=== PATIENT | male | born 1945 | race Caucasian/White ===

== ENCOUNTER 2019-05-19 08:30 | Inpatient (IN) | payer BC, MEDICARE ==
--- NOTE | 2019-08-11 09:20 | HP ---
HISTORY OF PRESENT ILLNESS: The patient is a 73-year-old male with a long history of progressive problems with the right knee. He has had previous arthroscopic surgery of both knees and open meniscectomy in the left. He has problems with both knees, but his right knee is bothering the most, and he has had progressive problems despite rest, restriction of activities, cortisone injection, anti-inflammatory medications, and lifestyle adjustments. The pain is now interfering with day-to-day activities including walking, getting dressed, and sleeping. PAST MEDICAL HISTORY: The patient is otherwise in good health. He has had a previous cardiac stent and has a history of asthma and COPD. He was followed by Dr. Massey and Dr. Rendon and has had clearance from both of them. He also has history of hypertension, prediabetes, and hypercholesterolemia. CURRENT MEDICATIONS: Include: 1. Metformin. 2. Breo Ellipta. 3. Simvastatin. 4. Low-dose aspirin. 5. Benicar. 6. Dymista. 7. Singulair. 8. ProAir. 9. He uses a CPAP machine at home. ALLERGIES: HE IS ALLERGIC TO IODINE, IV CONTRAST. FAMILY HISTORY: Otherwise unremarkable. SOCIAL HISTORY: Otherwise unremarkable. REVIEW OF SYSTEMS: Otherwise unremarkable. PHYSICAL EXAMINATION: GENERAL: Reveals a healthy male. HEENT: Unremarkable. NECK: Supple. CHEST: Clear. HEART: Regular rate and rhythm. ABDOMEN: Soft, nontender. RECTAL: Deferred. GENITAL: Deferred. EXTREMITIES: Pertinent findings of the right knee, there is no effusion. There is mild valgus deformity. There is tenderness and crepitus over the lateral joint line. There are healed arthroscopy puncture sites. Range of motion is 5 to 110 degrees. There is no instability. Neurovascular exam is intact. There is no pain with range of motion of the right hip. DIAGNOSTIC STUDIES: X-rays of the right knee reveal severe tricompartmental degenerative arthritis and narrowing laterally. There is [id number] collapse medially in the left knee. IMPRESSION: 1. Posttraumatic degenerative arthritis of both knees, right greater than left. 2. History of asthma. 3. History of hypercholesterolemia. 4. History of hypertension. 5. History of prediabetes. PLAN: Right total knee replacement. He may eventually require left total knee replacement. The nature of the surgery, length of recovery, and potential complications such as infection, loss of motion, incomplete relief, delayed wound healing, neurovascular injury, thromboembolic phenomena, possible transfusion, and need for revision have been discussed in detail. Job ID: [id number]
[2019-08-15] MEDS ORDERED: Tranexamic Acid 1,000 MG/10 ML VIAL ONE ×2 (07:24→11:32)
[2019-08-15] MEDS ORDERED: Vancomycin 1.5 GRAM/300 ML BAG 1.5 GM/300 ML BAG ONE (07:24)
[2019-08-15] MEDS ORDERED: Sodium Chloride 0.9% 100 ML ONE (07:24)
[2019-08-15] MEDS ORDERED: Midazolam HCl 2 mg/2 ml Vial ONE (07:59)
[2019-08-15] MEDS ORDERED: Fentanyl 100 MCG/2 ML VIAL ONE ×3 (08:00→11:39)
[2019-08-15] MEDS ORDERED: EPINEPHrine 1 MG/ML AMP ONE (08:13)
[2019-08-15] MEDS ORDERED: Promethazine HCl 25 MG/ML VIAL IM PRN (09:36)
[2019-08-15] MEDS ORDERED: Ropivacaine HCl/PF 250 ML in Premix Bag 1 BAG NERVE BLCK SCH (09:36)
[2019-08-15] MEDS ORDERED: Ondansetron PF 4 MG/2 ML Vial IVP PRN ×2 (09:36→12:37)
[2019-08-15] MEDS ORDERED: Zolpidem Tartrate 5 MG TAB PO PRN ×2 (09:36→12:37)
[2019-08-15] MEDS ORDERED: HYDROcodone/Acetaminophen 10/325 mg Tablet PO PRN ×3 (09:36→12:37)
[2019-08-15] MEDS ORDERED: Fentanyl 100 MCG/2 ML VIAL IV PRN (09:36)
[2019-08-15] MEDS ORDERED: traMADol HCl 50 MG TAB PO PRN ×3 (09:36→12:37)
[2019-08-15] MEDS ORDERED: Acetaminophen 325 MG TAB PO PRN ×2 (09:36→12:37)
[2019-08-15] MEDS ORDERED: Lidocaine 1% w/Epinephrine 1:100K 20 ML VIAL ONE (09:45)
[2019-08-15] MEDS ORDERED: Bupivacaine 0.25% HCL 30 ML VIAL ONE (09:45)
[2019-08-15] MEDS ORDERED: Tranexamic Acid 1,000 MG in Sodium Chloride 0.9% 100 ML IVPB SCH ×2 (11:30→12:37)
[2019-08-15] MEDS ORDERED: Ketorolac Tromethamine 30 MG/ML VIAL IVP SCH (12:00)
[2019-08-15] MEDS ORDERED: Ropivacaine 0.2% HCl/PF (40 MG/20 ML VIAL) ONE (12:03)
[2019-08-15] MEDS ORDERED: Glycopyrrolate 0.2 MG/ML 5 ML SYRINGE ONE (12:03)
[2019-08-15] MEDS ORDERED: PROPOFOL 200 MG/20 ML VIAL ONE (12:03)
[2019-08-15] MEDS ORDERED: EPHEDRINE 25 MG/5 ML SYRINGE ONE (12:03)
[2019-08-15] MEDS ORDERED: Bupivacaine HCl 0.5%/Epinephrine 1:200,000/PF 30 ml Vial ONE (12:03)
[2019-08-15] MEDS ORDERED: Lidocaine 1% PF 5 ML VIAL ONE (12:03)
[2019-08-15] MEDS ORDERED: Ondansetron PF 4 MG/2 ML Vial ONE (12:03)
[2019-08-15] MEDS ORDERED: Dexamethasone 20 MG/5 ML VIAL ONE (12:03)
[2019-08-15] MEDS ORDERED: diphenhydrAMINE 25 MG CAP PO PRN (12:37)
[2019-08-15] MEDS ORDERED: Fentanyl 100 MCG/2 ML VIAL SLOW IVP PRN ×2 (12:37)
[2019-08-15] MEDS ORDERED: Promethazine HCl 25 MG/ML VIAL SLOW IVP PRN (12:37)
[2019-08-15] MEDS ORDERED: Aspirin 81 mg Enteric Coated Tablet PO SCH (13:00)
--- NOTE | 2019-08-15 13:00 | RAD ---
RIGHT KNEE RADIOGRAPH 2 VIEWS: INDICATION: Postop right knee. COMPARISON: None. FINDINGS: There is a right total knee prosthesis that projects in the expected position. There is intraarticul ar and scattered periarticular soft tissue gas. IMPRESSION: Right total knee prosthesis. POS: BH
[2019-08-15] MEDS ORDERED: Fluticasone Propionate Nasal Spray 16 gm Bottle NASAL SCH (13:15)
[2019-08-15] MEDS ORDERED: Azelastine 137 MCG/Spray 30 ML NS SCH (13:15)
[2019-08-15 13:20] VITALS: BMI 27.2
[2019-08-15] MEDS ORDERED: Senokot S 8.6-50 MG TAB PO SCH (13:45)
[2019-08-15] MEDS ORDERED: metFORMIN 500 MG TAB PO SCH (13:45)
[2019-08-15] MEDS ORDERED: Ubidecarenone 50 MG CAP PO SCH (13:45)
[2019-08-15] MEDS ORDERED: Losartan 25 MG TAB PO SCH (13:45)
[2019-08-15] MEDS ORDERED: Multivitamin W/ Minerals 1 TAB PO SCH (13:45)
[2019-08-15] MEDS: Azelastine 137 MCG/Spray 30 ML NS SCH (14:07)
--- NOTE | 2019-08-15 14:30 | OP ---
DATE OF PROCEDURE: 08/15/2019 STAIN SPRAYER: Leah Swartz PA-C ANESTHESIA: General plus adductor canal and sciatic nerve blocks. PREOPERATIVE DIAGNOSIS: Degenerative arthritis, right knee. POSTOPERATIVE DIAGNOSIS: Degenerative arthritis, right knee. PROCEDURE PERFORMED: Right total knee replacement with computer-assisted navigation with cemented [place] [employer] components (#6 femoral component, #7 primary tibial baseplate with 16 mm CS plastic insert, and A35 all-plastic patella component). DESCRIPTION OF PROCEDURE: After satisfactory anesthesia was induced in supine position, sequential compression device was placed on the nonoperative leg throughout the procedure. The right leg was then prepped and draped in routine manner, elevated, exsanguinated with Esmarch bandage, and the tourniquet was inflated to 250 mmHg. A gently-curved medial parapatellar incision was made, carried down to the subcutaneous tissues, and bleeding points were controlled with Bovie cautery. Medial parapatellar arthrotomy was performed. Patella was dislocated laterally and portions of the fat pad were excised for exposure. There was marked tricompartmental degenerative arthritis of the knee with large areas of exposed bone both medially and laterally. Osteophytes and meniscal remnants were removed. Using the mana.bo pinless navigation system and the appropriate guides, the distal femoral and proximal tibial articular surfaces were excised to accept the trial components. Portions of the IT band and popliteus tendon were released to correct the valgus deformity. It was felt that a #6 femoral component and #7 primary tibial baseplate with 16 mm CS plastic insert gave appropriate size, fit, and stability. The patellar articular surface was excised to accept all-plastic A35 patella component. There was good range of motion and good patellar tracking. The trial components were removed. The knee was copiously irrigated with the pulsatile lavage. The bony surfaces were thoroughly cleaned and dried. The permanent components were then cemented in a single stage using one package of cement premixed with 1 g of tobramycin powder. Excess cement was removed. There was again good fit and stability of the components. The knee was again copiously irrigated. The medial retinaculum and quadriceps mechanism were closed with interrupted #2 Vicryl and a running #2 Quill. The skin was infiltrated with a mixture of 30 mL of 0.25% plain Marcaine and 20 mL of 1% lidocaine with epinephrine. Subcutaneous tissues were closed with a running 0 Quill suture and the skin was closed with running subcuticular 3-0 Monoderm and Surgiseal skin adhesive. A sterile bulky compressive dressing was applied. The tourniquet was deflated after 92 minutes. The foot promptly pinked up. Sequential compression device was applied to the operated leg. He was awakened and taken to recovery room in stable condition. There were no apparent intraoperative complications. The estimated blood loss was less than 100 mL. Job ID: [id number]
[2019-08-15] MEDS: CEFAZOLIN 2 GM in Premix Bag 1 BAG IVPB SCH ×2 (15:00→23:29)
[2019-08-15] MEDS: Sodium Chloride 0.9% 1,000 ML IV SCH ×2 (15:00→23:29)
--- NOTE | 2019-08-15 15:20 | PDOC.HOSPP ---
- Subjective Encounter Date: 08/15/19 Encounter Time: 12:45 Subjective: no sob or chest pain right LE is still numb at bedside - Objective Vital Signs & Weight: Vital Signs (12 hours) Temp Pulse Resp BP Pulse Ox 08/15/19 12:45 96.8 F L 48 L 18 136/66 97 Weight Weight 212 lb Additional Labs: Accuchecks 08/15/19 08:07 POC Glucose 96 Hospitalist ROS - Medication Medications: Active Medications Generic Name Dose Route Start Last Admin Trade Name Freq PRN Reason Stop Dose Admin Azelastine HCl 0 ml 08/15/19 09:00 08/15/19 14:07 Azelastine NS Not Given DAILY NENITA Coenzyme Q10 200 mg 08/15/19 13:45 08/15/19 14:58 Coenzyme Q10 PO 08/15/19 15:45 200 mg NOW NENITA Administration Cefazolin Sodium/Dextrose 2 gm 50 mls @ 100 mls/hr 08/15/19 15:00 08/15/19 15 :00 / Device IVPB 08/15/19 23:29 50 mls Q8H NENITA Administration Sodium Chloride 1,000 mls @ 100 mls/hr 08/15/19 12:37 08/15/19 15:00 Normal Saline 0.9% IV Not Given .Q10H NENITA Iron/Minerals/Multivitamins 1 tab 08/15/19 13:45 08/15/19 14:58 Theragran M PO 08/15/19 15:45 1 tab NOW NENITA Administration Losartan Potassium 50 mg 08/15/19 13:45 08/15/19 14:58 Cozaar PO 08/15/19 15:45 50 mg NOW NENITA Administration Metformin HCl 500 mg 08/15/19 13:45 08/15/19 14:58 Glucophage PO 08/15/19 15:45 500 mg NOW NENITA Administration Senna/Docusate Sodium 2 tab 08/15/19 13:45 08/15/19 14:10 Senokot S PO 08/15/19 15:45 Not Given NOW NENITA - Exam General Appearance: awake alert Eye: PERRL, anicteric sclera ENT: no oropharyngeal lesions, dry oral mucosa Neck: supple, no JVD Heart: RRR, no murmur, no gallops Respiratory: no wheezes, no rales, no ronchi Gastrointestinal: soft, non-tender, non-distended, normal bowel sounds Extremities: no cyanosis, no edema Neurological: cranial nerve grossly intact, no focal deficits Psychiatric: normal affect, A&O x 3 Hosp A/P (1) Status post total knee replacement, right Code(s): Z96.651 - PRESENCE OF RIGHT ARTIFICIAL KNEE JOINT Status: Acute (2) HTN (hypertension) Code(s): I10 - ESSENTIAL (PRIMARY) HYPERTENSION Status: Chronic Qualifiers: Hypertension type: essential hypertension Qualified Code(s): I10 - Essential (primary) hypertension (3) CAD (coronary artery disease) Code(s): I25.10 - ATHSCL HEART DISEASE OF [place] CORONARY ARTERY W/O ANG PCTRS Status: Chronic Qualifiers: Coronary Disease-Associated Artery/Lesion type: [place] artery [place] vs. transplanted heart: [place] heart Associated angina: without angina Qualified Code(s): I25.10 - Atherosclerotic heart disease of [place] coronary artery without angina pectoris (4) Dyslipidemia Code(s): E78.5 - HYPERLIPIDEMIA, UNSPECIFIED Status: Chronic (5) DM type 2 (diabetes mellitus, type 2) Status: Chronic Qualifiers: Diabetes mellitus usp insulin use: without usp use Diabetes mellitus complication status: without complication Qualified Code(s): E11.9 - Type 2 diabetes mellitus without complications - Plan continue asp bid, metformin daily, cozaar, lipitor and singulair prior h/o cad with stent, f/u with No pcp (previous pcp's x2 retired) on fentanyl, norco prn for pain hemostable will f/u
[2019-08-15] MEDS: Ketorolac Tromethamine 30 MG/ML VIAL IVP SCH ×2 (17:58→23:28)
[2019-08-15] MEDS: Mometasone 200 MCG/Formoterol 5 MCG 120 PUFF INHALER INH SCH (18:02)
[2019-08-15] MEDS ORDERED: Vancomycin HCl 1.5 GM in Sodium Chloride 0.9% 250 ML 300 ML IVPB SCH (20:00)
[2019-08-15] MEDS ORDERED: Vancomycin 1.5 GRAM/300 ML BAG 1.5 GM in Premix Bag 1 BAG IVPB SCH (20:00)
[2019-08-15] MEDS: Aspirin 81 mg Enteric Coated Tablet PO SCH (20:06)
[2019-08-15] MEDS: Magnesium Oxide 250 MG TAB PO SCH (20:06)
[2019-08-15] MEDS: Senokot S 8.6-50 MG TAB PO SCH (20:07)
[2019-08-15] MEDS: Atorvastatin Calcium 20 MG TAB PO SCH (20:07)
[2019-08-15] MEDS: Montelukast Sodium 10 mg Tablet PO SCH (20:07)
[2019-08-16] MEDS: HYDROcodone/Acetaminophen 10/325 mg Tablet PO PRN ×2 (03:21→19:58)
[2019-08-16 05:26] LABS: Hemoglobin 12.3 g/dL (14.0-18.0); Mean Corpuscular HGB CONC 31.9 g/dL (32.0-36.0); Mean Corpuscular Hemoglobin 31.9 pg (27.0-31.0); Mean Corpuscular Volume 99.9 fL (78.0-98.0); Mean Platelet Volume 8.5 fL (7.4-10.4); Platelet Count 146 thou/uL (130-400); RBC Distribution Width 12.1 % (11.5-14.5); Red Blood Cell (RBC) Count 3.87 mill/uL (4.70-6.10); White Blood Cell (WBC) Count 12.2 thou/uL (4.8-10.8)
[2019-08-16] MEDS: Ketorolac Tromethamine 30 MG/ML VIAL IVP SCH ×4 (06:05→23:43)
[2019-08-16] MEDS: Mometasone 200 MCG/Formoterol 5 MCG 120 PUFF INHALER INH SCH ×2 (07:34→18:08)
[2019-08-16] MEDS: Sodium Chloride 0.9% 1,000 ML IV SCH ×2 (07:59→19:58)
[2019-08-16] MEDS: Losartan 25 MG TAB PO SCH (08:02)
[2019-08-16] MEDS: metFORMIN 500 MG TAB PO SCH (08:03)
[2019-08-16] MEDS: Ubidecarenone 50 MG CAP PO SCH (08:03)
[2019-08-16] MEDS: Multivitamin W/ Minerals 1 TAB PO SCH (08:03)
[2019-08-16] MEDS: Aspirin 81 mg Enteric Coated Tablet PO SCH ×2 (08:03→19:57)
[2019-08-16] MEDS: Senokot S 8.6-50 MG TAB PO SCH ×2 (08:03→19:57)
[2019-08-16] MEDS: Azelastine 137 MCG/Spray 30 ML NS SCH (08:05)
[2019-08-16] MEDS: Fluticasone Propionate Nasal Spray 16 gm Bottle NASAL SCH (08:06)
--- NOTE | 2019-08-16 12:41 | PDOC.HOSPP ---
- Subjective Encounter Date: 08/16/19 Encounter Time: 08:00 Subjective: is sitting in chair, no sob or chest pain ambulated with PT yesterday - Objective Vital Signs & Weight: Vital Signs (12 hours) Temp Pulse Resp BP Pulse Ox 08/16/19 11:28 97.9 F 42 L 16 116/52 L 93 L 08/16/19 07:40 98.2 F 90 16 115/57 L 95 08/16/19 03:20 97.7 F 42 L 14 112/61 95 Weight Admit Weight 212 lb Weight 212 lb I&O: 08/15/19 08/16/19 08/17/19 06:59 06:59 06:59 Intake Total 1100 Output Total 2024 Balance -925 Result Diagrams: 08/16/19 04:59 Hospitalist ROS - Medication Medications: Active Medications Generic Name Dose Route Start Last Admin Trade Name Freq PRN Reason Stop Dose Admin Hydrocodone Bitart/Acetaminophen 1 tab 08/15/19 12:37 08/16/19 03:21 [place] 10/325 PO 1 tab Q4H PRN Administration Moderate Pain (4-6) Aspirin 81 mg 08/15/19 21:00 08/16/19 08:03 Ecotrin PO 81 mg BID NENITA Administration Atorvastatin Calcium 20 mg 08/15/19 21:00 08/15/19 20:07 Lipitor PO 20 mg HS NENITA Administration Azelastine HCl 0 ml 08/15/19 09:00 08/16/19 08:05 Azelastine NS 1 spr DAILY NENITA Administration Coenzyme Q10 200 mg 08/16/19 09:00 08/16/19 08:03 Coenzyme Q10 PO 200 mg DAILY NENITA Administration Fluticasone Propionate 0 gm 08/16/19 09:00 08/16/19 08:06 Flonase Nasal [place] NASAL 1 spr DAILY NENITA Administration Sodium Chloride 1,000 mls @ 100 mls/hr 08/15/19 12:37 08/16/19 07:59 Normal Saline 0.9% IV Not Given .Q10H NENITA Iron/Minerals/Multivitamins 1 tab 08/16/19 09:00 08/16/19 08:03 Theragran M PO 1 tab DAILY NENITA Administration Ketorolac Tromethamine 15 mg 08/15/19 18:00 08/16/19 06:05 Toradol IVP 08/17/19 18:01 15 mg Q6HR NENITA Administration Losartan Potassium 50 mg 08/16/19 09:00 08/16/19 08:02 Cozaar PO 50 mg DAILY NENITA Administration Magnesium Oxide 250 mg 08/15/19 21:00 08/15/19 20:06 Magnesium Oxide PO 250 mg HS NENITA Administration Metformin HCl 500 mg 08/16/19 09:00 08/16/19 08:03 Glucophage PO 500 mg DAILY NENITA Administration Mometasone Furoate/Formoterol Fumar 2 puff 08/15/19 18:30 08/16/19 07:34 Dulera 200 Mcg/5 Mcg Inhaler INH 2 puff BID-RT NENITA Administration Montelukast Sodium 10 mg 08/15/19 21:00 08/15/19 20:07 Singulair PO 10 mg HS NENITA Administration Senna/Docusate Sodium 2 tab 08/15/19 21:00 08/16/19 08:03 Senokot S PO 2 tab BID NENITA Administration Sodium Chloride 10 ml 08/15/19 21:00 08/16/19 08:04 Flush - Normal Saline IVF 10 ml Q12HR NENITA Administration - Exam General Appearance: awake alert Eye: PERRL, anicteric sclera ENT: no oropharyngeal lesions, moist mucosa Neck: supple, symmetric Heart: RRR, no murmur Respiratory: no wheezes, no rales Gastrointestinal: soft, non-tender, non-distended, normal bowel sounds Extremities: no cyanosis, no edema Neurological: cranial nerve grossly intact, no focal deficits Psychiatric: normal affect, A&O x 3 Hosp A/P (1) Status post total knee replacement, right Code(s): Z96.651 - PRESENCE OF RIGHT ARTIFICIAL KNEE JOINT Status: Acute (2) HTN (hypertension) Code(s): I10 - ESSENTIAL (PRIMARY) HYPERTENSION Status: Chronic Qualifiers: Hypertension type: essential hypertension Qualified Code(s): I10 - Essential (primary) hypertension (3) CAD (coronary artery disease) Code(s): I25.10 - ATHSCL HEART DISEASE OF [place] CORONARY ARTERY W/O ANG PCTRS Status: Chronic Qualifiers: Coronary Disease-Associated Artery/Lesion type: [place] artery [place] vs. transplanted heart: [place] heart Associated angina: without angina Qualified Code(s): I25.10 - Atherosclerotic heart disease of [place] coronary artery without angina pectoris (4) Dyslipidemia Code(s): E78.5 - HYPERLIPIDEMIA, UNSPECIFIED Status: Chronic (5) DM type 2 (diabetes mellitus, type 2) Status: Chronic Qualifiers: Diabetes mellitus terminal system operator insulin use: without terminal system operator use Diabetes mellitus complication status: without complication Qualified Code(s): E11.9 - Type 2 diabetes mellitus without complications - Plan continue asp bid, metformin daily, cozaar, lipitor and singulair prior h/o cad with stent, f/u with No pcp (previous pcp's x2 retired) on fentanyl, norco prn for pain hemostable dc plan per ortho advice
[2019-08-16] MEDS: Magnesium Oxide 250 MG TAB PO SCH (19:58)
[2019-08-16] MEDS: Montelukast Sodium 10 mg Tablet PO SCH (19:58)
[2019-08-16] MEDS: Atorvastatin Calcium 20 MG TAB PO SCH (19:58)
[2019-08-17] MEDS: Sodium Chloride 0.9% 1,000 ML IV SCH ×2 (03:31→15:05)
[2019-08-17] MEDS: Ketorolac Tromethamine 30 MG/ML VIAL IVP SCH ×2 (05:54→12:20)
[2019-08-17] MEDS: Mometasone 200 MCG/Formoterol 5 MCG 120 PUFF INHALER INH SCH (06:58)
[2019-08-17] MEDS: Senokot S 8.6-50 MG TAB PO SCH (07:59)
[2019-08-17] MEDS: Aspirin 81 mg Enteric Coated Tablet PO SCH (07:59)
[2019-08-17] MEDS: Ubidecarenone 50 MG CAP PO SCH (07:59)
[2019-08-17] MEDS: Losartan 25 MG TAB PO SCH (08:00)
[2019-08-17] MEDS: Multivitamin W/ Minerals 1 TAB PO SCH (08:00)
[2019-08-17] MEDS: metFORMIN 500 MG TAB PO SCH (08:00)
[2019-08-17] MEDS: Azelastine 137 MCG/Spray 30 ML NS SCH (11:14)
[2019-08-17] MEDS: Fluticasone Propionate Nasal Spray 16 gm Bottle NASAL SCH (11:14)
[2019-08-17 11:55] VITALS: BP 114/63; TEMP 97.3
== END 2019-08-17 14:50 | disposition home or self-care (01) | DRG 470 ==
LOC: SURG A 08-15 06:54 → SJJU 08-15 12:06
PROVIDERS: ADMIT Orthopaedic Surgery; ATTEND Orthopaedic Surgery
PROC: 0SRC0J9 Replacement of Right Knee Joint with Synthetic Substitute, Cemented, Open Approach (ICD-10-PCS; principal; 2019-08-15)
PROC: 8E0YXBZ Computer Assisted Procedure of Lower Extremity (ICD-10-PCS; 2019-08-15)
DX: M17.31 Unilateral post-traumatic osteoarthritis, right knee (principal); J44.9 Chronic obstructive pulmonary disease, unspecified; I10 Essential (primary) hypertension; E78.00 Pure hypercholesterolemia, unspecified; I25.10 Atherosclerotic heart disease of native coronary artery without angina pectoris; E11.9 Type 2 diabetes mellitus without complications; Z79.84 Long term (current) use of oral hypoglycemic drugs; Z79.899 Other long term (current) drug therapy; Z91.041 Radiographic dye allergy status; Z88.8 Allergy status to other drugs, medicaments and biological substances; Z95.5 Presence of coronary angioplasty implant and graft
CPT/HCPCS: 36415; 36416; 85027; C1713; C1776; J0171; J0670; J0690; J1100; J1885; J2001; J2250; J2405; J2704; J2795; J3010; J3370; J3490; S0020

== ENCOUNTER 2019-08-11 07:04 | Outpatient (CLI) | payer BC, OTHER ==
[2019-08-11 14:52] LABS: #Basophils 0.1 thou/uL (0.0-0.2); #Eosinphils 0.4 thou/uL (0.0-0.7); #Lymphocytes 1.7 thou/uL (1.20-3.40); #Monocytes 0.3 thou/uL (0.11-0.59); #Neutrophils 3.6 thou/uL (1.40-6.50); %Basophils 1.4 % (0.0-1.0); %Eosinophils 6.1 % (0.0-10.0); %Lymphocytes 27.6 % (21.0-51.0); %Monocytes 4.8 % (0.0-10.0); %Neutrophils 60.1 % (42.0-75.0); Hemoglobin 14.7 g/dL (14.0-18.0); Mean Corpuscular HGB CONC 32.1 g/dL (32.0-36.0); Mean Corpuscular Hemoglobin 31.7 pg (27.0-31.0); Mean Corpuscular Volume 98.5 fL (78.0-98.0); Mean Platelet Volume 8.6 fL (7.4-10.4); Platelet Count 186 thou/uL (130-400); RBC Distribution Width 11.9 % (11.5-14.5); Red Blood Cell (RBC) Count 4.64 mill/uL (4.70-6.10)
[2019-08-11 14:56] LABS: Bacteria/HPF None Seen HPF (None Seen); Bilirubin Negative (Negative); Blood, Urine Negative (Negative); Clarity Clear (Clear); Glucose, Urine (Dipstick) Normal (Negative); Leukocyte Negative Leu/uL (Negative); Nitrite Negative (Negative); Protein, Urine (Dipstick) Negative (Neg-Trace); RBC/HPF 0-3 HPF (0-3); Squamous Epithelial None Seen HPF (0-3); Urobilinogen Normal mg/dL (Less than 2); WBC/HPF 0-3 HPF (0-3)
[2019-08-11 14:58] LABS: INR-International Normal Ratio 0.9; Prothrombin Time 12.5 sec (12.0-14.7)
[2019-08-11 15:12] LABS: Anion Gap 11 mmol/L (10-20); BUN (Urea Nitrogen) 12 mg/dL (8.4-25.7); Calc. Creatinine Clearance 0 mL/min (70-130); Calcium 9.2 mg/dL (7.8-10.44); Carbon Dioxide 26 mmol/L (23-31); Chloride 107 mmol/L (98-107); Estimated GFR-MDRD 74; Glucose 94 mg/dL (83-110); Potassium 4.1 mmol/L (3.5-5.1); Sodium 140 mmol/L (136-145)
[2019-08-12 10:39] LABS: SARS-CoV-2 MS2 Positive; SARS-CoV-2 N Gene Negative; SARS-CoV-2 S Gene Negative; SARS-CoV-2 orf1ab Negative
== END 2019-08-11 07:05 | disposition home or self-care (01) ==
LOC: LABBT 07:04
PROVIDERS: ATTEND Orthopaedic Surgery
DX: Z01.818 Encounter for other preprocedural examination (principal); Z11.59 Encounter for screening for other viral diseases; M17.31 Unilateral post-traumatic osteoarthritis, right knee
CPT/HCPCS: 80048; 81001; 85025; 85610; 87081; 87635; 93005; 93010; U0003